=== PATIENT | female | born 1975 | race Caucasian/White ===

== ENCOUNTER 2016-10-02 05:49 | Emergency (ER) | payer OTHER ==
[~2016-10-02] VITALS: Ht 162.6 cm; Wt 107.0 kg
[~2016-10-02 05:49] MED LIST: ALBUTEROL SULF8.5 GM IH; ALKA-SELTZER P1 EAC2 PO; AMBIEN CR12.5 MG PO; AMITRIPTYLINE H50 MG PO; ARTHITIS MED PO; AUGMENTIN875 MG PO; BACLOFEN10 MG PO; BLACK COHOSH540 MG PO; BUDESONIDE0.5 MG/2 M IH; CALAN SR120 MG PO; CALAN120 MG PO; CARBAMAZEPINE100 MG PO; CARBAMAZEPINE200 MG PO; CELEBREX200 MG PO; CIPRO500 MG PO; CLONAZEPAM0.5 MG PO; CLONAZEPAM2 MG PO; CYPROHEPTADINE H4 MG PO; DIFLUCAN150 MG PO; DILAUDID2 MG PO; DOLOPHINE HCL10 MG PO; DOXYCYCLINE HY100 MG PO; ELAVIL25 MG PO; ESTRACE1 MG PO; ETODOLAC400 M2 NG; EVENING PRIMR1000 MG PO; EXCEDRIN MIGRA1 EAC3 PO; FLEXERIL10 MG PO; FLONASE16 G1 BOTH NARES; FLOVENT 22120 INHALA IH; Flexeril PO; HYCODAN SYRUP480 ML PO; HYDROXYZINE PAM50 MG PO; KLONOPIN0.5 M1 PO; KLONOPIN1 MG PO; KLONOPIN2 MG PO; KlonoPIN PO; LAMICTAL100 MG PO; LEVAQUIN500 MG PO; LODINE400 MG PO; Levaquin PO; MACROBID100 MG PO; METHADONE10 MG PO; METHADONE5 MG PO; METOCLOPRAMIDE10 MG PO; MOBIC15 MG PO; MOTRIN800 MG PO; MUCINEX D1 TABLET PO; Methadone PO; PAROXETINE HCL40 MG PO; PAXIL30 MG PO; PERCOCET 5/31 TABLET PO; PERCOCET 7.51 TABLET PO; PHENERGAN12.5 M1 PO; PREDNISONE10 M1 PO; PREDNISONE20 MG PO; PREDNISONE50 MG PO; PRILOSEC40 MG PO; PROAIR HFA8.5 GM IH; PROMETHAZINE HC50 M1 PO; PROVENTIL,2.5 MG/3 M IH; PYRIDIUM100 MG PO; PYRIDIUM200 MG PO; REGLAN10 M1 PO; REGLAN10 MG PO; REQUIP2 MG PO; RISPERDAL2 MG PO; RISPERDAL3 MG PO; ROPINIROLE HCL2 MG PO; Robitussin DM PO; SKELAXIN400 M1 NG; SYMBICORT60 INHALAT IH; TOPAMAX100 MG PO; TOPAMAX200 MG PO; TOPAMAX50 MG PO; TORADOL10 MG PO; TRAZODONE HCL300 MG PO; TYLENOL W/COD1 COMB1 PO; TYLENOL WITH C1 EACH PO; Topamax PO; Tylenol Regular Stre PO; VENTOLIN HFA18 GM IH; ZANAFLEX4 MG PO; ZITHROMAX Z-PA250 MG PO; ZITHROMAX250 MG PO; ZYRTEC10 M1 PO; ZYRTEC10 M3 PO; [UNRECOGNIZED DRUG - REMARK]; predniSONE PO
[2016-10-02 08:40] LABS: ADD MIUA? YES; BILIRUBIN NEGATIVE; BLOOD NEGATIVE; COLOR YELLOW ((YELLOW)); GLUCOSE (STRIP) NEGATIVE; KETONES NEGATIVE; LEUKOCYTES TRACE; NITRITE NEGATIVE; PROTEIN (STRIP) NEGATIVE; SPECIFIC GRAVITY 1.009 (1.000-1.030); UROBILINOGEN 0.2 MG/DL (0.2-1.0)
[2016-10-02 08:46] LABS: BACTERIA RARE /HPF; EPITHELIAL CELLS 1+ /HPF; MUCUS NONE SEEN /LPF; RED BLOOD CELLS 0-5 /HPF (0-5); UCUL ADDED? NO
[2016-10-02 08:50] LABS: BASOPHIL COUNT 0.1 K/uL (0-0.1); EOSINOPHIL (%) 3.4 % (0-5); EOSINOPHIL COUNT 0.3 K/uL (0-0.3); HEMATOCRIT 44.8 % (36.0-46.0); IMMATURE GRANULOCYTE (%) 0.3 % (0.0-0.7); INSTRUMENT ABS NEUTROPHIL CT 5.3 K/uL; LYMPHOCYTE COUNT 2.5 K/uL (1.0-2.8); MCH 29.1 PG (29.0-34.0); MCHC 33.5 G/DL (30.0-36.0); MEAN PLAT.VOLUME 10.6 uM^3 (9.5-12.4); MONOCYTE (%) 5.8 % (3-12); MONOCYTE COUNT 0.5 K/uL (0-0.8); NEUTROPHIL (%) 60.8 % (45-76); NEUTROPHIL COUNT 5.3 K/uL (1.8-6.4); PLATELET COUNT 188 K/uL (156-360); RBC DIS.WIDTH-CV 12.1 % (11.8-14.6); RED BLOOD COUNT 5.15 M/uL (3.80-5.20); WHITE BLOOD COUNT 8.7 K/uL (4.1-10.2)
[2016-10-02 09:11] LABS: ALKALINE PHOSPHATASE 63 IU/L (3-129); ANION GAP 11 MEQ/L (2-14); CHLORIDE 104 MEQ/L (99-109); GFR ESTIMATE (CALCULATED) > 59 mL/min/; GLUCOSE 90 mg/dL (70-99); LIPASE 3 U/L (1.0-51.0); POTASSIUM 3.9 MEQ/L (3.7-5.4); SAMPLE HEMOLYSIS CHECK 1; SAMPLE ICTERIC CHECK 0; SAMPLE LIPEMIA CHECK 0; SODIUM 140 MEQ/L (136-147); TOTAL BILIRUBIN 0.3 MG/DL (0.0-1.0); UREA NITROGEN (BUN) 19 mg/dL (9-23)
[2016-10-02 09:27] LABS: QUANTITATIVE HCG < 4.0 MIU/ML
[2016-10-02] MEDS ORDERED: NORCO 5/3251 TABLET PO (11:53)
[2016-10-02] MEDS ORDERED: ZOFRAN ODT4 MG PO (11:53)
[2016-10-02 12:06] VITALS: BP 121/79
== END 2016-10-02 12:08 | disposition home or self-care (01) ==
LOC: EME 05:49
PROVIDERS: Emergency Medicine
DX: R10.13 Epigastric pain (principal); J45.901 Unspecified asthma with (acute) exacerbation; F17.200 Nicotine dependence, unspecified, uncomplicated; Z87.442 Personal history of urinary calculi; G40.909 Epilepsy, unspecified, not intractable, without status epilepticus; Z91.040 Latex allergy status
CPT/HCPCS: 74177; 80048; 80076; 81003; 83690; 84702; 85025; 87086; 94640; 99281; 99285; C9113; J7030

== ENCOUNTER 2016-10-19 18:07 | Inpatient (IN) | payer OTHER ==
[~2016-10-19] VITALS: Ht 162.6 cm; Wt 101.8 kg
[~2016-10-19 18:07] MED LIST changes: +NORCO 5/3251 TABLET PO; +ZOFRAN ODT4 MG PO
[2016-10-19 22:01] LABS: EOSINOPHIL COUNT 0.2 K/uL (0-0.3); HEMATOCRIT 41.3 % (36.0-46.0); IMMATURE GRANULOCYTE (%) 0.3 % (0.0-0.7); INSTRUMENT ABS NEUTROPHIL CT 5.5 K/uL; LYMPHOCYTE COUNT 2.5 K/uL (1.0-2.8); MCHC 34.6 G/DL (30.0-36.0); MCV 83.8 FL (83-99); MEAN PLAT.VOLUME 9.8 uM^3 (9.5-12.4); MONOCYTE COUNT 0.5 K/uL (0-0.8); NEUTROPHIL (%) 62.9 % (45-76); NEUTROPHIL COUNT 5.5 K/uL (1.8-6.4); PLATELET COUNT 217 K/uL (156-360); RBC DIS.WIDTH-CV 13.1 % (11.8-14.6); RBC DIS.WIDTH-SD 38.6 % (39-53); RED BLOOD COUNT 4.93 M/uL (3.80-5.20); WHITE BLOOD COUNT 8.7 K/uL (4.1-10.2)
[2016-10-19 22:10] LABS: CHLORIDE 106 mEq/L (99-109); POTASSIUM 2.8 mEq/L (3.7-5.4); SODIUM 144 mEq/L (136-147)
[2016-10-19 22:13] LABS: GLUCOSE 90 mg/dL (70-99)
[2016-10-19 22:14] LABS: ANION GAP 13 MEQ/L (2-14)
[2016-10-19 22:15] LABS: TOTAL BILIRUBIN 0.6 mg/dL (0.0-1.0)
[2016-10-19 22:16] LABS: ALKALINE PHOSPHATASE 52 IU/L (3-129); GFR ESTIMATE (CALCULATED) > 59 mL/min/
[2016-10-19 22:17] LABS: UREA NITROGEN (BUN) 11 mg/dL (9-23)
[2016-10-19 22:58] LABS: TROP-I INTERPRETATION NEGATIVE; TROPONIN-I < 0.01 ng/mL (0.0-0.30)
[2016-10-19 23:04] LABS: ADD MIUA? YES; BILIRUBIN NEGATIVE; BLOOD NEGATIVE; COLOR AMBER ((YELLOW)); GLUCOSE (STRIP) NEGATIVE; KETONES 20; LEUKOCYTES LARGE; NITRITE NEGATIVE; PROTEIN (STRIP) NEGATIVE; SPECIFIC GRAVITY 1.012 (1.000-1.030); UROBILINOGEN 0.2 MG/DL (0.2-1.0)
[2016-10-19 23:24] LABS: BACTERIA 2+ /HPF; EPITHELIAL CELLS 4+ /HPF; HYALINE CASTS 0-5 /LPF; MUCUS 4+ /LPF; UCUL ADDED? YES; WHITE BLOOD CELLS 30-40 /HPF (0-5)
[2016-10-20] VITALS (7 sets, daily range): BP systolic 118–167; BP diastolic 59–99
[2016-10-20] MEDS ORDERED: FLONASE16 G1 BOTH NARES (01:07)
[2016-10-20] MEDS ORDERED: OMEPRAZOLE40 M1 PO (01:07)
[2016-10-20 02:01] LABS: MAGNESIUM 2.2 mg/dL (1.3-2.7)
[2016-10-20 05:34] LABS: EOSINOPHIL (%) 4.3 % (0-5); EOSINOPHIL COUNT 0.3 K/uL (0-0.3); HEMATOCRIT 40.4 % (36.0-46.0); IMMATURE GRANULOCYTE (%) 0.3 % (0.0-0.7); INSTRUMENT ABS NEUTROPHIL CT 4.1 K/uL; LYMPHOCYTE COUNT 1.9 K/uL (1.0-2.8); MCH 29.5 PG (29.0-34.0); MCHC 34.7 G/DL (30.0-36.0); MCV 85.1 FL (83-99); MEAN PLAT.VOLUME 10.4 uM^3 (9.5-12.4); MONOCYTE (%) 8.4 % (3-12); MONOCYTE COUNT 0.6 K/uL (0-0.8); NEUTROPHIL (%) 59.6 % (45-76); NEUTROPHIL COUNT 4.1 K/uL (1.8-6.4); PLATELET COUNT 202 K/uL (156-360); RBC DIS.WIDTH-CV 13.4 % (11.8-14.6); RBC DIS.WIDTH-SD 40.5 % (39-53); RED BLOOD COUNT 4.75 M/uL (3.80-5.20); WHITE BLOOD COUNT 6.9 K/uL (4.1-10.2)
[2016-10-20 05:41] LABS: CHLORIDE 108 mEq/L (99-109); SODIUM 144 mEq/L (136-147)
[2016-10-20 05:43] LABS: GLUCOSE 97 mg/dL (70-99)
[2016-10-20 05:45] LABS: ANION GAP 12 MEQ/L (2-14)
[2016-10-20 05:47] LABS: GFR ESTIMATE (CALCULATED) > 59 mL/min/
[2016-10-20 05:48] LABS: POTASSIUM 3.4 mEq/L (3.7-5.4); UREA NITROGEN (BUN) 11 mg/dL (9-23)
[2016-10-21 04:26] VITALS: BP 120/70
[2016-10-21 07:41] VITALS: BP 126/83
[2016-10-21 11:21] VITALS: BP 153/75
[2016-10-21] MEDS ORDERED: SUCRALFATE1 GM PO (14:23)
[2016-10-21 15:22] VITALS: BP 168/85
[2016-10-21 19:43] VITALS: BP 155/89
[2016-10-21 23:13] VITALS: BP 136/89
[2016-10-22 04:34] VITALS: BP 133/85
[2016-10-22 07:02] LABS: ALKALINE PHOSPHATASE 47 IU/L (3-129); ANION GAP 8 MEQ/L (2-14); CHLORIDE 108 MEQ/L (99-109); GFR ESTIMATE (CALCULATED) > 59 mL/min/; GLUCOSE 98 mg/dL (70-99); SAMPLE HEMOLYSIS CHECK 0; SAMPLE ICTERIC CHECK 0; SAMPLE LIPEMIA CHECK 0; SODIUM 140 MEQ/L (136-147); TOTAL BILIRUBIN 0.4 MG/DL (0.0-1.0); UREA NITROGEN (BUN) 4 mg/dL (9-23)
[2016-10-22 07:43] VITALS: BP 140/80
== END 2016-10-22 10:33 | disposition home or self-care (01) | DRG 392 ==
LOC: EME 18:07 → EDOF 10-20 02:20 → 3EAST 10-20 02:20
PROVIDERS: Emergency Medicine; Hospitalist; Pediatrics
PROC: 0DB68ZX Excision of Stomach, Via Natural or Artificial Opening Endoscopic, Diagnostic (ICD-10-PCS; principal; 2016-10-20)
DX: K29.60 Other gastritis without bleeding (principal); E87.6 Hypokalemia; N39.0 Urinary tract infection, site not specified; R94.31 Abnormal electrocardiogram [ECG] [EKG]; H92.02 Otalgia, left ear; J44.9 Chronic obstructive pulmonary disease, unspecified; G40.909 Epilepsy, unspecified, not intractable, without status epilepticus; G43.909 Migraine, unspecified, not intractable, without status migrainosus; G89.29 Other chronic pain; K21.9 Gastro-esophageal reflux disease without esophagitis; F17.200 Nicotine dependence, unspecified, uncomplicated; F43.10 Post-traumatic stress disorder, unspecified; F12.90 Cannabis use, unspecified, uncomplicated; Z80.3 Family history of malignant neoplasm of breast; Z85.42 Personal history of malignant neoplasm of other parts of uterus; K44.9 Diaphragmatic hernia without obstruction or gangrene; F32.9 Major depressive disorder, single episode, unspecified; F41.9 Anxiety disorder, unspecified; R07.89 Other chest pain; E66.9 Obesity, unspecified; Z68.38 Body mass index [BMI] 38.0-38.9, adult; Z90.710 Acquired absence of both cervix and uterus
CPT/HCPCS: 36415; 70450; 71010; 74177; 80048; 80053; 81003; 82607; 83036; 83735; 84132; 84484; 85025; 85027; 87070; 87075; 87086; 87205; 88305; 88342 TC; 93005; 94640; 94640 76; 99202; 99281; 99285; C9113; J0696; J2405; J3480; J7050

== ENCOUNTER 2016-12-19 11:11 | Emergency (ER) | payer OTHER ==
[~2016-12-19] VITALS: Ht 162.6 cm; Wt 90.5 kg
[~2016-12-19 11:11] MED LIST changes: +OMEPRAZOLE40 M1 PO; +SUCRALFATE1 GM PO
[2016-12-19] MEDS ORDERED: ULTRAM50 MG PO (15:10)
[2016-12-19 15:29] VITALS: BP 140/87
== END 2016-12-19 15:32 | disposition home or self-care (01) ==
LOC: EME 11:11
DX: T74.11XA Adult physical abuse, confirmed, initial encounter (principal); S39.012A Strain of muscle, fascia and tendon of lower back, initial encounter; S50.01XA Contusion of right elbow, initial encounter; M54.2 Cervicalgia; M79.641 Pain in right hand; Y04.8XXA Assault by other bodily force, initial encounter; Y07.01 Husband, perpetrator of maltreatment and neglect; Z72.0 Tobacco use
CPT/HCPCS: 72040; 72100; 73080; 73130; 99281; 99284; J1885

== ENCOUNTER 2017-01-06 09:52 | Emergency (ER) | payer OTHER ==
[~2017-01-06] VITALS: Ht 162.6 cm; Wt 88.4 kg
[~2017-01-06 09:52] MED LIST changes: +ULTRAM50 MG PO
[2017-01-06 10:38] LABS: HEMATOCRIT 49.5 % (36.0-46.0); MCH 29.5 PG (29.0-34.0); MCHC 33.5 G/DL (30.0-36.0); MCV 88.1 FL (83-99); MEAN PLAT.VOLUME 10.1 uM^3 (9.5-12.4); PLATELET COUNT 268 K/uL (156-360); RBC DIS.WIDTH-CV 12.6 % (11.8-14.6); RBC DIS.WIDTH-SD 41.1 % (39-53); RED BLOOD COUNT 5.62 M/uL (3.80-5.20); WHITE BLOOD COUNT 8.6 K/uL (4.1-10.2)
[2017-01-06 10:50] LABS: CHLORIDE 106 mEq/L (99-109); POTASSIUM 3.3 mEq/L (3.7-5.4); SODIUM 141 mEq/L (136-147)
[2017-01-06 10:53] LABS: GLUCOSE 82 mg/dL (70-99)
[2017-01-06 10:54] LABS: ANION GAP 10 MEQ/L (2-14); TOTAL BILIRUBIN 0.6 mg/dL (0.0-1.0)
[2017-01-06 10:56] LABS: ALKALINE PHOSPHATASE 86 IU/L (3-129); GFR ESTIMATE (CALCULATED) > 59 mL/min/
[2017-01-06 10:57] LABS: UREA NITROGEN (BUN) 14 mg/dL (9-23)
[2017-01-06 11:00] LABS: LIPASE 7 U/L (1.0-51.0)
[2017-01-06 11:05] LABS: QUANTITATIVE HCG < 4.0 MIU/ML
[2017-01-06 11:44] LABS: ADD MIUA? YES; BILIRUBIN NEGATIVE; BLOOD NEGATIVE; COLOR YELLOW ((YELLOW)); GLUCOSE (STRIP) NEGATIVE; KETONES NEGATIVE; LEUKOCYTES NEGATIVE; NITRITE NEGATIVE; PROTEIN (STRIP) 30; SPECIFIC GRAVITY 1.024 (1.000-1.030)
[2017-01-06 11:52] LABS: BACTERIA RARE /HPF; CALCIUM OXALATE CRYSTALS 4+ /HPF; EPITHELIAL CELLS 1+ /HPF; MUCUS NONE SEEN /LPF; WHITE BLOOD CELLS 0-5 /HPF (0-5)
[2017-01-06] MEDS ORDERED: ZOFRAN ODT4 MG PO (12:10)
[2017-01-06] MEDS ORDERED: BENTYL10 MG PO (12:10)
[2017-01-06 12:34] VITALS: BP 134/85
== END 2017-01-06 12:37 | disposition home or self-care (01) ==
LOC: EME 09:52
PROVIDERS: Nurse Practitioner Family
DX: R10.9 Unspecified abdominal pain (principal); R11.2 Nausea with vomiting, unspecified; R19.7 Diarrhea, unspecified; M54.5 Low back pain; K76.0 Fatty (change of) liver, not elsewhere classified; Z90.49 Acquired absence of other specified parts of digestive tract; Z90.710 Acquired absence of both cervix and uterus; Z85.42 Personal history of malignant neoplasm of other parts of uterus; Z87.442 Personal history of urinary calculi; Z79.891 Long term (current) use of opiate analgesic; J45.909 Unspecified asthma, uncomplicated; F17.200 Nicotine dependence, unspecified, uncomplicated
CPT/HCPCS: 74177; 80053; 81003; 83690; 84702; 85027; 99281; 99285; J2405; J3010; J7030

== ENCOUNTER 2017-05-03 11:31 | Emergency (ER) | payer OTHER ==
[~2017-05-03] VITALS: Ht 162.6 cm; Wt 93.4 kg
[~2017-05-03 11:31] MED LIST changes: +BENTYL10 MG PO
[2017-05-03 11:40] VITALS: BP 164/108
[2017-05-03 12:47] LABS: HEMATOCRIT 45.3 % (36.0-46.0); MCH 31.5 PG (29.0-34.0); MCHC 35.3 G/DL (30.0-36.0); MCV 89.2 FL (83-99); PLATELET COUNT 225 K/uL (156-360); RBC DIS.WIDTH-SD 39.5 % (39-53); RED BLOOD COUNT 5.08 M/uL (3.80-5.20); WHITE BLOOD COUNT 6.6 K/uL (4.1-10.2)
[2017-05-03 13:08] LABS: TROP-I INTERPRETATION NEGATIVE; TROPONIN-I < 0.01 ng/mL (0.0-0.30)
[2017-05-04 03:54] LABS: CHLORIDE 104 mEq/L (99-109); POTASSIUM 3.7 mEq/L (3.7-5.4); SODIUM 138 mEq/L (136-147)
[2017-05-04 03:56] LABS: GLUCOSE 101 mg/dL (70-99)
[2017-05-04 03:59] LABS: CREATININE 0.8 mg/dL (0.6-1.3); GFR ESTIMATE (CALCULATED) > 59 mL/min/
[2017-05-04 04:00] LABS: UREA NITROGEN (BUN) 13 mg/dL (9-23)
== END 2017-05-03 14:53 | disposition left against medical advice (07) ==
LOC: EME 11:31
DX: I10 Essential (primary) hypertension (principal); Z53.21 Procedure and treatment not carried out due to patient leaving prior to being seen by health care provider
CPT/HCPCS: 71046; 80048; 84484; 85027; 93005; 99281

== ENCOUNTER 2017-10-03 16:50 | Emergency (ER) | payer OTHER ==
[~2017-10-03] VITALS: Ht 162.6 cm; Wt 94.7 kg
[2017-10-03] MEDS ORDERED: LIDODERM 5% P1 PATCH TD (18:43)
[2017-10-03] MEDS ORDERED: ROBAXIN750 MG PO (18:43)
[2017-10-03] MEDS ORDERED: NORCO 5/3251 TABLET PO (18:57)
[2017-10-03 18:58] VITALS: BP 152/81
== END 2017-10-03 18:59 | disposition home or self-care (01) ==
LOC: RME 16:50 → EME 16:50 → RME 18:59
DX: M54.41 Lumbago with sciatica, right side (principal); M51.35 Other intervertebral disc degeneration, thoracolumbar region; V49.40XA Driver injured in collision with unspecified motor vehicles in traffic accident, initial encounter; Y92.410 Unspecified street and highway as the place of occurrence of the external cause; M41.9 Scoliosis, unspecified; Z85.42 Personal history of malignant neoplasm of other parts of uterus; Z88.2 Allergy status to sulfonamides; Z91.040 Latex allergy status; F17.200 Nicotine dependence, unspecified, uncomplicated
CPT/HCPCS: 72100; 99281; 99284